=== PATIENT | male | born 1965 | race Caucasian/White ===

== ENCOUNTER 2017-04-22 11:16 | Day surgery (SDC) | payer OTHER ==
[~2017-04-22] VITALS: Ht 167.6 cm; Wt 76.2 kg
[2017-04-22 12:11] VITALS: Ht 167.6 cm; Wt 76.2 kg
[2017-04-22 12:44] VITALS: BP 132/84; RESP 14
[2017-04-22] MEDS ORDERED: ASPIRIN (13:04)
[2017-04-22] MEDS ORDERED: HERBAL MEDS (13:04)
[2017-04-22] MEDS ORDERED: NO MEDS. (13:04)
--- NOTE | 2017-04-22 13:59 | OPPN ---
Date/Time of Note Date/Time of Note DATE: 04/22/17 TIME: 13:57 Operative Report Preoperative Diagnosis Screening Postoperative Diagnosis Internal hemorrhoids No colon neoplasm is identified Operation/Procedure Performed Colonoscopy Provider: BARBIE SILVERMAN MD Anesthesia Type: MAC Estimated blood loss: none Transfusion Required: no Specimen: none Grafts/Implants: none Complications: no BARBIE SILVERMAN MD Apr 22, 2017 13:59
[2017-04-22] MEDS ORDERED: LIDOCAINE 100 MG SYRINGE ONE (14:01)
[2017-04-22] MEDS ORDERED: PROPOFOL 40 ML ONE (14:01)
[2017-04-22 14:21] VITALS: BP 112/72; RESP 12
--- NOTE | 2017-04-22 19:48 | GILP ---
DATE OF PROCEDURE: 04/22/2017 PROCEDURE PERFORMED: Colonoscopy. SURGEON: Sandy Chavez MD PREOPERATIVE DIAGNOSIS: Screening colonoscopy. POSTOPERATIVE DIAGNOSES: 1. Colonoscopy all the way to the cecum. 2. Internal hemorrhoids. 3. No colon neoplasm was identified. INDICATION: Mr. Multani is a 51-year-old male patient was scheduled for screening colonoscopy. The procedure and possible complications were well explained to the patient. He understood and consented to the procedure. DESCRIPTION OF PROCEDURE: Under influence of anesthesia, the colonoscope was carefully introduced in the rectum. Under direct vision it was advanced all the way to the cecum. FINDINGS: The patient was noted to have internal hemorrhoids. No colon neoplasm was identified. He tolerated the procedure very well. There is no complications from the procedure. At the end of procedure he was awake with stable vital signs. He was discharged home in care of his family. IMPRESSION: 1. Colonoscopy all the way to the cecum. 2. Internal hemorrhoids. 3. No colon neoplasm was identified. PLAN: Next screening colonoscopy in 10 years. Dictated By: MD AMELIA Mcginnis/rodrigo/adali /Document#: [id number]
== END 2017-04-22 15:14 | disposition home or self-care (01) ==
LOC: GIL 11:16
PROVIDERS: ATTEND Internal Medicine Gastroenterology
DX: Z12.11 Encounter for screening for malignant neoplasm of colon (principal); K64.8 Other hemorrhoids; E78.5 Hyperlipidemia, unspecified
CPT/HCPCS: 45378; J2001; Z7610